=== PATIENT | female | born 1980 | race Caucasian/White ===

== ENCOUNTER 2016-11-24 18:22 | Emergency (ER) | payer MEDICAID ==
[~2016-11-24] VITALS: Ht 157.5 cm; Wt 52.0 kg
[~2016-11-24 18:22] MED LIST: BENZ100 PO; NAPR40TA PO
[2016-11-24 18:30] VITALS: BP 134/74; PULSE 84; RESP 16; TEMP 99.7; O2SAT 99
[2016-11-24] MEDS ORDERED: TETANUS/DIPHTHERIA TOXOID ADULT 0.5 ML VIAL IM ONE (19:00)
--- NOTE | 2016-11-24 19:05 | PD ---
HPI Chief Complaint: Bite or Sting Time Seen by Provider: 18:52 Travel History International Travel<30 days: No Contact w/Intl Traveler<30days: No Traveled to known affect area: No History of Present Illness HPI 36-year-old female complains of dog bite to right hand and right wrist. Patient states that the dog belongs to a neighbor. Patient states that the dog is behind in rabies shot. Patient states that she has sharp burning pain localized to right hand and right wrist. Patient denies any pain radiation. Patient states that she is not up-to-date with TD booster. Patient states that animal officer was called and examined the dog this afternoon. 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) Tetanus Vaccination: > 5 Years Influenza Vaccination: No ?: Not LMP: 3 weeks ago : 5 Para: 2 Miscarriage: 2 Past Surgical History Surgical History: No Previous Surgery Abdominal Surgery: Yes (LAPROSCOPY ) Body Medical Devices: TERETS Tonsillectomy: Yes Social History Alcohol Use: No Tobacco Use: Yes (1 PPD) Substance Use: No Allergies-Medications (Allergen,Severity, Reaction): Coded Allergies: No Known Allergies (Verified , 11/24/16) Reported Meds & Prescriptions Reported Meds & Active Scripts Active No Active Prescriptions or Reported Medications Review of Systems General / Constitutional: No: Fever Eyes: No: Visual changes HENT: No: Headaches Cardiovascular: No: Chest Pain or Discomfort Respiratory: No: Shortness of Breath Gastrointestinal: No: Abdominal Pain Genitourinary: No: Dysuria Musculoskeletal: Positive: Pain Skin: No Rash Neurologic: No: Weakness Psychiatric: No: Depression Endocrine: No: Polydipsia Hematologic/Lymphatic: No: Easy Bruising Physical Exam Narrative GENERAL: Well-nourished, well-developed patient. SKIN: Warm and dry. HEAD: Normocephalic. EYES: No scleral icterus. No injection or drainage. NECK: Supple, trachea midline. No JVD or lymphadenopathy. CARDIOVASCULAR: Regular rate and rhythm without murmurs, gallops, or rubs. RESPIRATORY: Breath sounds equal bilaterally. No accessory muscle use. GASTROINTESTINAL: Abdomen soft, non-tender, nondistended. MUSCULOSKELETAL: No cyanosis, or edema. BACK: Nontender without obvious deformity. No CVA tenderness. Examination of the right hand right wrist shows 0.5 cm puncture wound the palmar aspect of the hand between first and second metacarpal and 0.5 cm puncture wound to right wrist over the radial aspect. No active bleeding. Sensorimotor function distally intact. Data Data Last Documented VS Vital Signs Date Time Temp Pulse Resp B/P Pulse Ox O2 Delivery O2 Flow Rate FiO2 11/24/16 18:30 99.7 84 16 134/74 99 Orders Tetanus/Diphtheria Tox Adult (Tetanus/Di (11/24/16 19:00) Hand, Complete ([id number]) (11/24/16 18:58) Wrist, Complete ([id number]) (11/24/16 18:58) Lidocaine 1% Inj (50 Ml) (Xylocaine 1% I (11/24/16 19:15) MDM Medical Decision Making Medical Screen Exam Complete: Yes Emergency Medical Condition: Yes Differential Diagnosis Differential diagnosis including puncture wound, ligament tendon joint injury. Narrative Course 36-year-old female with dog bite to right hand and right wrist. TD booster given. Procedures Procedure Narrative 1% lidocaine local anesthesia. Betadine wash. The wound was irrigated with saline solution. Polysporin ointment with dressing applied. Diagnosis Primary Impression: Dog bite of hand Qualified Code: S61.451A - Dog bite of hand, right, initial encounter Patient Instructions: General Instructions Additional Instructions: Wound care daily. Take antibiotic as directed. Follow-up with personal physician. Return if increasing redness swelling or infected. Med/Other Pt SpecificInfo: Prescription(s) given Scripts Ibuprofen 600 Mg [id number] Mg PO Q8HR PRN (PAIN) #30 TAB Ref 0 Prov:Carlito Harley MD 11/24/16 Tramadol (Ultram)50 Mg Tab50 Mg PO Q6H PRN (PAIN) #20 TAB Prov:Carlito Harley MD 11/24/16 Amoxicillin-Clavulanate (Augmentin)875-125 mg [id number] Mg PO BID #14 TAB not for use in CrCl <30 ml/min. Prov:Carlito Harley MD 11/24/16 Disposition: 01 DISCHARGE HOME Condition: Stable Carlito Harley MD Nov 24, 2016 19:05
[2016-11-24] MEDS ORDERED: LIDOCAINE HCL 1% 50 ML VIAL INFIL ONE (19:15)
--- NOTE | 2016-11-24 19:29 | RADHPO ---
EXAM DATE/TIME: 11/24/2016 19:13 [facility] COMPARISON: No previous studies available for comparison. INDICATIONS : Right hand pain after dog bite. MEDICAL HISTORY : None. SURGICAL HISTORY : None. ENCOUNTER: Initial ACUITY: 1 day PAIN SCORE: 7/10 LOCATION: Right hand, between first and second digit FINDINGS: Three view examination of the right hand demonstrates no dislocation, or fracture. Emphysema in the soft tissues laterally. The carpal bones appear intact. The interphalangeal and metacarpophalangeal joints are intact. Bony mineralization is normal. CONCLUSION: Soft tissue injury without fracture or foreign body. Wilmer Byrnes MD on November 24, 2016 at 19:27 Board Certified Radiologist. This report was verified electronically.
--- NOTE | 2016-11-24 19:30 | RADHPO ---
EXAM DATE/TIME: 11/24/2016 19:17 [facility] COMPARISON: No previous studies available for comparison. INDICATIONS : Right wrist pain after dog bite. MEDICAL HISTORY : None. SURGICAL HISTORY : None. ENCOUNTER: Initial ACUITY: 1 day PAIN SCORE: 8/10 LOCATION: Right wrist FINDINGS: Three view examination of the right wrist demonstrates no fracture or dislocation. Soft tissue injury laterally with subcutaneous emphysema. No foreign body. The carpal bones are in normal alignment. The joint spaces are maintained. Bony mineralization is normal. CONCLUSION: Soft tissue laceration without fracture or foreign body Wilmer Byrnes MD on November 24, 2016 at 19:28 Board Certified Radiologist. This report was verified electronically.
[2016-11-24] MEDS ORDERED: IBUP-232 PO (20:00)
[2016-11-24] MEDS ORDERED: AUGM875T PO (20:00)
[2016-11-24] MEDS ORDERED: AMOXICILLIN/CLAVULANATE K 875 MG TAB PO ONE (20:00)
[2016-11-24] MEDS ORDERED: ULTR50TA5 PO (20:00)
[2016-11-24 20:09] VITALS: BP 136/63; PULSE 70; RESP 16; O2SAT 99
== END 2016-11-24 20:23 | disposition home or self-care (01) ==
LOC: PHED 18:22
DX: S61.451A Open bite of right hand, initial encounter (principal); F95.2 Tourette's disorder; F17.210 Nicotine dependence, cigarettes, uncomplicated; Z23 Encounter for immunization; W54.0XXA Bitten by dog, initial encounter; Y93.9 Activity, unspecified; Y92.9 Unspecified place or not applicable
CPT/HCPCS: 73110; 73130; 90471; 90714